=== PATIENT | male | born 1970 | race Caucasian/White ===

== ENCOUNTER 2017-02-13 10:10 | Emergency (ER) | payer BC ==
[~2017-02-13] VITALS: Ht 182.9 cm; Wt 90.7 kg
[2017-02-13] MEDS ORDERED: KETOROLAC 30 MG/ML INJ. IV ONE (11:15)
[2017-02-13] MEDS ORDERED: PROCHLORPERAZINE 10 MG/2 ML VIAL. IV ONE (11:15)
[2017-02-13] MEDS ORDERED: diphenhydrAMINE 50 MG/ML VIAL IVP ONE (11:15)
[2017-02-13] MEDS ORDERED: IV NORMAL SALINE 1000ML BAG 1,000 ML IV ONE (11:15)
--- NOTE | 2017-02-13 11:51 | ED.ADGEN ---
Past Medical History Past Medical History: Migraines Past Surgical History: Other Additional Past Surgical Histo: L ANKLE, URETHRA Alcohol Use: None Drug Use: None Adult General Chief Complaint Chief Complaint: HEADACHE HPI HPI Patient is a 46 year old male who presents with migraine. He's had nausea with vomiting. He has had a lifetime of migraines but rarely has to come to the hospital. Home medications did not control his symptoms. No fever or neck stiffness reported, does not have a primary care physician. Review of Systems Review of Systems Constitutional: Denies fever or chills. [] Eyes: Denies change in visual acuity. [] HENT: Denies nasal congestion or sore throat. [] Respiratory: Denies cough or shortness of breath. [] Cardiovascular: Denies chest pain or edema. [] GI: Denies abdominal pain, nausea, vomiting, bloody stools or diarrhea. [] : Denies dysuria. [] Musculoskeletal: Denies back pain or joint pain. [] Integument: Denies rash. [] Neurologic: Denies focal weakness or sensory changes. [] Current Medications Current Medications Current Medications Medications (Trade) Dose Ordered Sig/Olivier Start Time Stop Time Status Last Admin Dose Admin Diphenhydramine HCl (Benadryl) 25 mg 1X ONCE 02/13/17 11:15 02/13/17 11:16 DC 02/13/17 11:07 25 MG Ketorolac Tromethamine (Toradol) 30 mg 1X ONCE 02/13/17 11:15 02/13/17 11:16 DC 02/13/17 11:07 30 MG Prochlorperazine Edisylate (Compazine) 10 mg 1X ONCE 02/13/17 11:15 02/13/17 11:16 DC 02/13/17 11:07 10 MG Sodium Chloride 1,000 ml @ 1,000 mls/hr 1X ONCE 02/13/17 11:15 02/13/17 12:14 DC 02/13/17 11:07 1,000 MLS/HR Allergies Allergies Allergies Coded Allergies Type Severity Reaction Last Updated Verified Penicillins Allergy Intermediate HIVES 02/13/17 Yes Physical Exam Physical Exam Constitutional: Well developed, well nourished, no acute distress, non-toxic appearance. [] HENT: Normocephalic, atraumatic, bilateral external ears normal, oropharynx moist, no oral exudates, nose normal. [] Eyes: PERRLA, EOMI, conjunctiva normal, no discharge. [] Neck: Normal range of motion, no tenderness, supple, no stridor. [] Cardiovascular:Heart rate regular with regular rhythm, no murmur [] Lungs & Thorax: Bilateral breath sounds clear to auscultation [] Abdomen: soft, no tenderness, no masses, no pulsatile masses. [] Skin: Warm, dry, no erythema, no rash. [] Back: No tenderness, no CVA tenderness. [] Extremities: No tenderness, no cyanosis, no clubbing, ROM intact, no edema. [] Neurologic: Alert and oriented X 3, normal motor function, normal sensory function, no focal deficits noted.CRANIAL Nerves II through XII intact Psychologic: Affect normal, judgement normal, mood normal. [] Current Patient Data Vital Signs Vital Signs Date Time Temp Pulse Resp B/P (MAP) Pulse Ox O2 Delivery O2 Flow Rate FiO2 02/13/17 12:27 78 127/76 (93) 99 Room Air 02/13/17 10:20 97.6 18 97.6 EKG EKG [] Radiology/Procedures Radiology/Procedures [] Course & Med Decision Making Course & Med Decision Making Pertinent Labs and Imaging studies reviewed. (See chart for details) Pt given IV Compazine, Benadryl and Toradol. 1 L of IV fluids given. Headache resolved and pt feels ready for discharge. Return precautions given, referral sheet given to find PCP for f/u. DX: Migraine Dragon Disclaimer Dragon Disclaimer This electronic medical record was generated, in whole or in part, using a voice recognition dictation system. KARIE DIALLO MD Feb 13, 2017 11:51
[2017-02-13 12:27] VITALS: BP 127/76
== END 2017-02-13 12:41 | disposition home or self-care (01) ==
LOC: ER 10:10
DX: J45.909 Unspecified asthma, uncomplicated (principal); Z88.0 Allergy status to penicillin
CPT/HCPCS: 96361; 96374; 96375; 99284; J0780; J1200; J1885; J7030